=== PATIENT | male | born 1990 | race Caucasian/White ===

== ENCOUNTER 2016-10-07 19:22 | Emergency (ER) | payer MEDICAID, OTHER ==
[~2016-10-07] VITALS: Wt 143.5 kg
[~2016-10-07 19:22] MED LIST: LORA0.5T PO; OMEP20CA9 PO
[2016-10-07] MEDS ORDERED: IBUPROFEN 800 MG TAB PO ONE (20:00)
[2016-10-07 20:07] LABS: ADD UMIC NO; UR ASCORBIC ACID 40 mg/dL (NEGATIVE); UR BILIRUBIN (Dip) NEGATIVE (NEGATIVE); UR BLOOD (Dip) NEGATIVE (NEGATIVE); UR CLARITY CLEAR (CLEAR); UR COLOR YELLOW (YELLOW); UR GLUCOSE (Dip) NEGATIVE (NEGATIVE); UR KETONES (Dip) TRACE mg/dL (NEGATIVE); UR LEUKOCYTE ESTERASE (Dip) NEGATIVE Leu/ul (NEGATIVE); UR NITRITE (Dip) NEGATIVE (NEGATIVE); UR TOTAL PROTEIN (Dip) NEGATIVE (NEGATIVE); UR UROBILINOGEN (Dip) NEGATIVE (NEGATIVE)
--- NOTE | 2016-10-07 20:21 | RADRPT ---
PROCEDURE: SCROTAL ULTRASOUND: CLINICAL INDICATION: 26 years of age, male, left testicular pain . COMPARISON: None TECHNIQUE: Multiple transverse and sagittal melton scale, color, and spectral Doppler sonographic imag es of the scrotum were obtained. FINDINGS: Right scrotum: Testis measurements: 3.3 x 0.8 x 2.7 cm (Vol 8.4 mL). Testis appearance: Normal. No intratesticular masses. Color and spectral Doppler tracings: Normal. Epididymis: Normal. Other: No hydrocele or varicocele. Left scrotum: Testis measurements: 3.2 x 2.2 x 2.8 cm (Vol 10 mL). Testis appearance: Normal. No intratesticular masses. Color and spectral Doppler tracings: Normal. Epididymis: Normal. Other: No hydrocele or varicocele. IMPRESSION: Normal scrotal ultrasound. Negative for evidence of testicular torsion. RPTAT: HCTS Physician Socrates Date Time Electronically viewed and signed by Physician Socrates on 10/07/2016 20:20 /
[2016-10-07] MEDS ORDERED: IBUP-1542 PO (20:56)
[2016-10-07 21:18] VITALS: BP 149/93; PULSE 95; RESP 20; TEMP 98.8
--- NOTE | 2016-10-07 22:07 | ERD ---
ER Documentation Chief Complaint Date/Time DATE: 10/07/16 TIME: 22:05 Chief Complaint Testicular pain left side HPI Patient is a 26-year-old male with no medical problems who presents with testicular pain. He said that 2 weeks ago he started with left-sided testicle pain. He has pain with palpation of his testicles. 2 days ago he injured his back and the pain in his testicle got worse. He denies fevers. He has had no treatment as of yet. He has no burning with urination. Upon review of old medical records this is the patient's third visit to the ER since 2011. ROS All systems reviewed and are negative except as per history of present illness. Medications Home Meds Active Scripts Ibuprofen* (Motrin*) 600 Mg Tab, 600 MG PO Q8, #30 TAB Prov:DOMINIC LOVETT MD 10/07/16 Discontinued Scripts Omeprazole* (Prilosec*) 20 Mg Capsule.dr, 20 MG PO BID for 30 Days, CAP Prov:ZHANNA,SHERI C 12/15/14 Lorazepam* (Lorazepam*) 0.5 Mg Tablet, 0.5 MG PO HS Y for ANXIETY for 5 Days, TAB Prov:ZHANNA,SHERI C 12/15/14 Allergies Allergies: Coded Allergies: No Known Allergy (Unverified , 10/07/16) PMhx/Soc Medical and Surgical Hx: pt denies Medical Hx, pt denies Surgical Hx History of Surgery: No Hx Miscellaneous Medical Probl: No (no past medical hx) Hx Alcohol Use: Yes (SOCIAL) Hx Substance Use: Yes (MARIJUANA) Hx Tobacco Use: No Smoking Status: Never smoker FmHx Family History: No diabetes Physical Exam Vitals Vital Signs Date Time Temp Pulse Resp B/P Pulse Ox O2 Delivery O2 Flow Rate FiO2 10/07/16 21:18 98.8 95 20 149/93 97 Room Air 10/07/16 19:35 99.3 107 20 163/98 98 Physical Exam Const: No acute distress Head: Atraumatic Eyes: Normal Conjunctiva ENT: Normal External Ears, Nose and Mouth. Neck: Full range of motion..~ No meningismus. Resp: Clear to auscultation bilaterally Cardio: Regular rate and rhythm, no murmurs Abd: Soft, non tender, non distended. Normal bowel sounds Skin: No petechiae or rashes Back: No midline or flank tenderness Ext: No cyanosis, or edema Neur: Awake and alert : Uncircumcised without lesions, no obvious testicular swelling, normal lie Results 24 hrs Laboratory Tests Test 10/07/16 19:57 Urine Color YELLOW Urine Clarity CLEAR Urine pH 5.0 Urine Specific [place] 1.030 Urine Ketones TRACEmg/dL Urine Nitrite NEGATIVEmg/dL Urine Bilirubin NEGATIVEmg/dL Urine Urobilinogen NEGATIVEmg/dL Urine Leukocyte Esterase NEGATIVELeu/ul Urine Hemoglobin NEGATIVEmg/dL Urine Glucose NEGATIVEmg/dL Urine Total Protein NEGATIVEmg/dl Current Medications Medications (Trade) Dose Ordered Sig/Be Route PRN Reason Start Time Stop Time Status Last Admin Dose Admin Ibuprofen (Motrin) 800 mg ONCE ONCE PO 10/07/16 20:00 10/07/16 20:01 DC 10/07/16 20:10 Procedures/MDM Ultrasound shows no signs of testicular torsion per radiology. Urinalysis is negative for infection. Patient is a 26-year-old male who presents with left testicular pain. This is been there for 2 weeks. Ultrasound does not show any signs of torsion. Urinalysis shows no signs of infection. I believe the patient likely has an epididymitis and I will treat with ibuprofen. The patient could return for any worsening symptoms. I believe outpatient management is appropriate. The patient was given copies of the ultrasound report and laboratory studies prior to discharge. Departure Diagnosis: Primary Impression: Epididymitis Condition: Fair Patient Instructions: Epididymitis Additional Instructions: Call your primary care doctor TOMORROW for an appointment during the next 1-2 days.See the doctor sooner or return here if your condition worsens before your appointment time. DOMINIC LOVETT MD Oct 07, 2016 22:07
== END 2016-10-07 21:20 | disposition home or self-care (01) ==
LOC: E/R 19:22
DX: N45.1 Epididymitis (principal)
CPT/HCPCS: 76870; 81003; Z7502; Z7610